=== PATIENT | male | born 1955 | race Caucasian/White ===

== ENCOUNTER → 2017-04-01 | Outpatient (CLI) | payer OTHER ==
[~2017-04-01] MED LIST: AMLO10TA4 PO; ASPI-496 PO; ATOR40TA PO; CINN500C2 PO; DUTA0.5C PO; MILK500C PO; MULT-658 PO
== END | disposition home or self-care (01) ==
LOC: CFH 11:18
PROVIDERS: ATTEND Internal Medicine Cardiovascular Disease
DX: I25.89 Other forms of chronic ischemic heart disease (principal); I10 Essential (primary) hypertension
CPT/HCPCS: 78452; 93017; 93306; A9502

== ENCOUNTER 2020-08-25 12:47 | Outpatient (CLI) | payer OTHER, MEDICARE | END 2020-08-25 23:59 | disposition home or self-care (01) | LOC: CVU 12:47 | PROVIDERS: ATTEND Internal Medicine Cardiovascular Disease | DX: I08.0 Rheumatic disorders of both mitral and aortic valves (principal); I10 Essential (primary) hypertension; Z82.49 Family history of ischemic heart disease and other diseases of the circulatory system | CPT/HCPCS: 93306 ==